=== PATIENT | female | born 1950 | race African-American/Black ===

== ENCOUNTER 2019-05-20 14:08 | Emergency (ER) | payer SELFPAY ==
[2019-05-20] MEDS ORDERED: Sodium Chloride 0.9% 10 ML Syringe FLUSH PRN ×2 (14:31→19:20)
--- NOTE | 2019-05-20 14:47 | EDM.PDOC ---
<Mauricio Valentin - Last Filed: 05/20/19 22:11> ED HPI GENERAL MEDICAL PROBLEM - General Chief Complaint: Cardiovascular Problem Stated Complaint: HIGH BP/BACK AND NECK PAIN/HEADACHE Time Seen by Provider: 05/20/19 14:28 - Related Data Allergies Allergy/AdvReac Type Severity Reaction Status Date / Time No Known Allergies Allergy Verified 05/20/19 14:24 Home Meds: Home Meds Atenolol [Tenormin] 25 mg PO BID 05/20/19 [History] Enalapril Maleate 20 mg PO DAILY 05/20/19 [History] Methimazole [Tapazole] 10 mg PO DAILY 05/20/19 [History] amLODIPine Besylate [Amlodipine Besylate] 10 mg PO DAILY #30 tablet 05/20/19 [Rx ] Course - Vital Signs Last Recorded V/S: Last Vital Signs Temp 97.9 F 05/20/19 14:24 Pulse 80 05/20/19 22:36 Resp 16 05/20/19 22:36 BP 167/87 H 05/20/19 22:36 Pulse Ox 98 05/20/19 22:36 - Orders/Labs/Meds Orders: Active Orders 24 hr Category Date Time Status EKG Documentation Completion [RC] STAT Care 05/20/19 14:31 Active EKG Documentation Completion [RC] STAT Care 05/20/19 19:45 Active Peripheral IV Care [RC] . DIRECTED Care 05/20/19 14:32 Active Peripheral IV Insertion Adult [OM.PC] Stat Oth 05/20/19 14:31 Ordered Labs: Laboratory Tests 05/20/19 05/20/19 05/20/19 Range/Units 15:00 15:00 15:00 WBC 4.31 (3.98-10.04) K/mm3 RBC 4.42 (3.98-5.22) M/mm3 Hgb 12.4 (11.2-15.7) gm/dl Hct 40.2 (34.1-44.9) % MCV 91.0 (79.4-94.8) fl MCH 28.1 (25.6-32.2) pg MCHC 30.8 L (32.2-35.5) g/dl RDW Std Deviation 43.4 (36.4-46.3) fL Plt Count 282 (182-369) K/mm3 MPV 11.3 (9.4-12.3) fl Neutrophils % (Manual) 45 (40-60) % Band Neutrophils % 0 (0-10) % Lymphocytes % (Manual) 49 H (20-40) % Atypical Lymphs % 0 % Monocytes % (Manual) 6 (2-10) % Eosinophils % (Manual) 0 L (0.7-5.8) % Basophils % (Manual) 0 L (0.1-1.2) Platelet Estimate Adequate Macrocytosis 1+ slight Ovalocytes 1+ slight RBC Morph Comment Not Reportable Sodium 143 (136-145) mEq/L Potassium 3.5 (3.5-5.1) mEq/L Chloride 104 (98-107) mEq/L Carbon Dioxide 31 (21-32) mEq/L Anion Gap 11.5 (5-15) BUN 12 (7-18) mg/dL Creatinine 1.0 (0.55-1.02) mg/dL Est Cr Clr Drug Dosing 49.70 mL/min Estimated GFR (MDRD) > 60 (>60) mL/min BUN/Creatinine Ratio 12.0 L (14-18) Glucose 115 (80-115) mg/dL Calcium 8.7 (8.5-10.1) mg/dL Total Bilirubin 0.2 (0.2-1.0) mg/dL AST 14 L (15-37) U/L ALT 26 (14-59) U/L Alkaline Phosphatase 104 (46-116) U/L Troponin I (0.00-0.056) ng/mL NT-Pro-B Natriuret Pep 109 (0-125) pg/mL Total Protein 8.0 (6.4-8.2) g/dl Albumin 3.7 (3.4-5.0) g/dl Globulin 4.3 gm/dL Albumin/Globulin Ratio 0.9 L (1-2) Free T4 (0.76-1.46) ng/dL TSH 3rd Generation (0.358-3.74) uIU/mL Urine Color (Yellow) Urine Appearance (Clear) Urine pH (5.0-8.0) Ur Specific [place] (1.005-1.030) Urine Protein (Negative) Urine Glucose (UA) (Negative) Urine Ketones (Negative) Urine Occult Blood (Negative) Urine Nitrite (Negative) Urine Bilirubin (Negative) Urine Urobilinogen (0.2-1.0) Ur Leukocyte Esterase (Negative) Urine RBC (0-5) /hpf Urine WBC (0-5) /hpf Ur Squamous Epith Cells (0-5) /hpf Urine Bacteria (FEW) /hpf Urine Mucus (FEW) /hpf 05/20/19 05/20/19 05/20/19 Range/Units 15:00 15:00 16:00 WBC (3.98-10.04) K/mm3 RBC (3.98-5.22) M/mm3 Hgb (11.2-15.7) gm/dl Hct (34.1-44.9) % MCV (79.4-94.8) fl MCH (25.6-32.2) pg MCHC (32.2-35.5) g/dl RDW Std Deviation (36.4-46.3) fL Plt Count (182-369) K/mm3 MPV (9.4-12.3) fl Neutrophils % (Manual) (40-60) % Band Neutrophils % (0-10) % Lymphocytes % (Manual) (20-40) % Atypical Lymphs % % Monocytes % (Manual) (2-10) % Eosinophils % (Manual) (0.7-5.8) % Basophils % (Manual) (0.1-1.2) Platelet Estimate Macrocytosis Ovalocytes RBC Morph Comment Sodium (136-145) mEq/L Potassium (3.5-5.1) mEq/L Chloride (98-107) mEq/L Carbon Dioxide (21-32) mEq/L Anion Gap (5-15) BUN (7-18) mg/dL Creatinine (0.55-1.02) mg/dL Est Cr Clr Drug Dosing mL/min Estimated GFR (MDRD) (>60) mL/min BUN/Creatinine Ratio (14-18) Glucose (80-115) mg/dL Calcium (8.5-10.1) mg/dL Total Bilirubin (0.2-1.0) mg/dL AST (15-37) U/L ALT (14-59) U/L Alkaline Phosphatase (46-116) U/L Troponin I 0.106 H* (0.00-0.056) ng/mL NT-Pro-B Natriuret Pep (0-125) pg/mL Total Protein (6.4-8.2) g/dl Albumin (3.4-5.0) g/dl Globulin gm/dL Albumin/Globulin Ratio (1-2) Free T4 0.59 L (0.76-1.46) ng/dL TSH 3rd Generation 19.417 H (0.358-3.74) uIU/mL Urine Color Light yellow (Yellow) Urine Appearance Clear (Clear) Urine pH 7.0 (5.0-8.0) Ur Specific [place] 1.020 (1.005-1.030) Urine Protein Negative (Negative) Urine Glucose (UA) Negative (Negative) Urine Ketones Negative (Negative) Urine Occult Blood Negative (Negative) Urine Nitrite Negative (Negative) Urine Bilirubin Negative (Negative) Urine Urobilinogen 0.2 (0.2-1.0) Ur Leukocyte Esterase Negative (Negative) Urine RBC 0-5 (0-5) /hpf Urine WBC 0-5 (0-5) /hpf Ur Squamous Epith Cells 0-5 (0-5) /hpf Urine Bacteria Occasional (FEW) /hpf Urine Mucus Not seen (FEW) /hpf 05/20/19 05/20/19 Range/Units 18:20 21:10 WBC (3.98-10.04) K/mm3 RBC (3.98-5.22) M/mm3 Hgb (11.2-15.7) gm/dl Hct (34.1-44.9) % MCV (79.4-94.8) fl MCH (25.6-32.2) pg MCHC (32.2-35.5) g/dl RDW Std Deviation (36.4-46.3) fL Plt Count (182-369) K/mm3 MPV (9.4-12.3) fl Neutrophils % (Manual) (40-60) % Band Neutrophils % (0-10) % Lymphocytes % (Manual) (20-40) % Atypical Lymphs % % Monocytes % (Manual) (2-10) % Eosinophils % (Manual) (0.7-5.8) % Basophils % (Manual) (0.1-1.2) Platelet Estimate Macrocytosis Ovalocytes RBC Morph Comment Sodium (136-145) mEq/L Potassium (3.5-5.1) mEq/L Chloride (98-107) mEq/L Carbon Dioxide (21-32) mEq/L Anion Gap (5-15) BUN (7-18) mg/dL Creatinine (0.55-1.02) mg/dL Est Cr Clr Drug Dosing mL/min Estimated GFR (MDRD) (>60) mL/min BUN/Creatinine Ratio (14-18) Glucose (80-115) mg/dL Calcium (8.5-10.1) mg/dL Total Bilirubin (0.2-1.0) mg/dL AST (15-37) U/L ALT (14-59) U/L Alkaline Phosphatase (46-116) U/L Troponin I 0.117 H* 0.113 H* (0.00-0.056) ng/mL NT-Pro-B Natriuret Pep (0-125) pg/mL Total Protein (6.4-8.2) g/dl Albumin (3.4-5.0) g/dl Globulin gm/dL Albumin/Globulin Ratio (1-2) Free T4 (0.76-1.46) ng/dL TSH 3rd Generation (0.358-3.74) uIU/mL Urine Color (Yellow) Urine Appearance (Clear) Urine pH (5.0-8.0) Ur Specific [place] (1.005-1.030) Urine Protein (Negative) Urine Glucose (UA) (Negative) Urine Ketones (Negative) Urine Occult Blood (Negative) Urine Nitrite (Negative) Urine Bilirubin (Negative) Urine Urobilinogen (0.2-1.0) Ur Leukocyte Esterase (Negative) Urine RBC (0-5) /hpf Urine WBC (0-5) /hpf Ur Squamous Epith Cells (0-5) /hpf Urine Bacteria (FEW) /hpf Urine Mucus (FEW) /hpf Meds: Medications Discontinued Medications Generic Name Dose Route Start Last Admin Trade Name Freq PRN Reason Stop Dose Admin Amlodipine Besylate 10 mg 05/20/19 18:41 05/20/19 19:02 Norvasc PO 05/20/19 18:42 10 mg ONETIME ONE Administration Enalaprilat 1.25 mg 05/20/19 16:33 05/20/19 16:50 Vasotec Iv IVPUSH 05/20/19 16:34 1.25 mg ONETIME ONE Administration Hydralazine HCl 10 mg 05/20/19 15:39 05/20/19 16:02 Apresoline IVPUSH 05/20/19 15:40 10 mg ONETIME ONE Administration Hydralazine HCl 10 mg 05/20/19 17:24 05/20/19 17:49 Apresoline IVPUSH 05/20/19 17:25 10 mg ONETIME ONE Administration Sodium Chloride 100 mls @ 60 mls/hr 05/20/19 19:30 05/20/19 20:05 Normal Saline IV 60 mls/hr ASDIRECTED VICKIE Administration Iopamidol 100 ml 05/20/19 19:20 05/20/19 20:05 Isovue-370 (76%) IVPUSH 05/20/19 19:21 100 ml ONETIME ONE Administration Ketorolac Tromethamine 30 mg 05/20/19 17:23 05/20/19 17:47 Toradol IVPUSH 05/20/19 17:24 30 mg ONETIME ONE Administration Sodium Chloride 10 ml 05/20/19 14:31 05/20/19 15:05 Saline Flush FLUSH 10 ml ASDIRECTED PRN Administration Keep Vein Open Sodium Chloride 10 ml 05/20/19 19:20 05/20/19 20:06 Saline Flush FLUSH 10 ml ONETIME PRN Administration Keep Vein Open - Re-Assessments/Exams Free Text/Narrative Re-Assessment/Exam: 05/20/19 22:12 Taking over for Jeanine. The CT of her chest shows no findings of pulmonary embolism. No aortic aneurysm or dissection. Nothing acute is appreciated on CT study of the chest. Other findings are non acute. Her repeat troponin is 0.113 and the one before that was 0.117. There has been hardly no change. I will discharge her home with the plan that Luz has outlined for her. Departure - Departure Time of Disposition: 22:15 Disposition: Home, Self-Care 01 Condition: Fair Clinical Impression: Elevated systolic blood pressure reading with diagnosis of hypertension, Elevated troponin, Hypothyroidism due to medication Low back pain Qualifiers: Chronicity: acute Back pain laterality: bilateral Sciatica presence: without sciatica Qualified Code(s): M54.5 - Low back pain Prescriptions: amLODIPine Besylate [Amlodipine Besylate] 10 mg PO DAILY #30 tablet Instructions: Thyroid-Stimulating Hormone Test, DASH Eating Plan Referrals: PCP,Unknown [Ordering Only Provider] - 06/24/19 (re-check TSH by endocrinology, Bar Guerra NP in [place]) Terra Mccarthy MD [Physician] - 2 Weeks (set up primary care) Mitul Nicholas MD [Physician] - 2 Weeks (set up primary care) Forms: ED Department Discharge Additional Instructions: You were evaluated in the ER today regarding your elevated blood pressure readings, and generalized feelings of being unwell. Your blood pressure was still quite elevated in the ER, and you were treated for this, you were given a combination of IV medications which is helped lower your blood pressure quite a bit, this did seem to help relieve most your symptoms. You have been given a prescription for a new blood pressure medication, amlodipine 10 mg daily, please start taking tomorrow for further blood pressure management, unless told otherwise. You should follow-up with cardiology within 1 week for a further outpatient cardiac work-up. Laboratory evaluation demonstrated an abnormality in your thyroid hormone level , which means you are taking too much methimazole, please decrease your dose by half, so take only 5 mg daily. You should have your TSH level rechecked in around 6 weeks time, recommend you follow-up with your primary care provider for further lab testing. Your back pain is most likely due to arthritic changes, the x-ray did not show any sort of acute damage that should be causing increased back pain. You may take ibuprofen 6 every 6 hours as needed for further back pain. Please return to the ER however if your symptoms change or worsen. Sepsis Event Note - Focused Exam Vital Signs: Vital Signs Pulse Resp BP Pulse Ox 05/20/19 22:36 80 16 167/87 H 98 Date Exam was Performed: 05/20/19 Time Exam was Performed: 22:11 - My Orders Last 24 Hours: My Active Orders 05/20/19 14:31 EKG Documentation Completion [RC] STAT Peripheral IV Insertion Adult [OM.PC] Stat 05/20/19 14:32 Peripheral IV Care [RC] . DIRECTED 05/20/19 19:45 EKG Documentation Completion [RC] STAT - Assessment/Plan Last 24 Hours: My Active Orders 05/20/19 14:31 EKG Documentation Completion [RC] STAT Peripheral IV Insertion Adult [OM.PC] Stat 05/20/19 14:32 Peripheral IV Care [RC] . DIRECTED 05/20/19 19:45 EKG Documentation Completion [RC] STAT <Luz Samayoa - Last Filed: 05/21/19 08:45> ED HPI GENERAL MEDICAL PROBLEM - General Source of Information: Reports: Patient, RN Notes Reviewed History Limitations: Reports: No Limitations - History of Present Illness INITIAL COMMENTS - FREE TEXT/NARRATIVE: Patient is a 69-year-old female who presents to the ED for the evaluation of elevated blood pressure, back and neck pain, and headache. The patient states that she has been on blood pressure medications for around 1 year now. She takes atenolol 25 mg twice daily, enalapril 20 mg daily, and methimazole 10 mg daily. She sees a healthcare provider in [place] but lives in [place]. The patient notes that she began not feeling well this morning, she went to the walk-in clinic and was found to have an elevated blood pressure reading. She notes that it was 210/87 at their clinic. At time of triage here it is 215/97, and a recheck 5 minutes later is 202/88. Patient notes that she is getting headaches, that seem to worsen at night, she is also complaining of neck and back pain, with some associated leg numbness and tingling, she states that she feels some chest discomfort as well as palpitations. Patient's denies any history of stroke, or blood clots. She is not complaining of any shortness of breath, fevers or chills, nausea or vomiting or diarrhea. Headache Pain Score (Numeric/FACES): 4 Past Medical History Cardiovascular History: Reports: Hypertension Other Cardiovascular History: Heart palpitation [employer] MANAGER History: Reports: Endocrine/Metabolic History: Reports: Hyperthyroidism - Past Surgical History Female Surgical History: Reports: Hysterectomy Social & Family History - Tobacco Use Smoking Status *Q: Never Smoker - Caffeine Use Caffeine Use: Reports: Tea - Recreational Drug Use Recreational Drug Use: No ED ROS GENERAL - Review of Systems Review Of Systems: See Below Constitutional: Denies: Fever, Chills, Decreased Appetite HEENT: Denies: Vertigo, Vision Change Respiratory: Denies: Shortness of Breath Cardiovascular: Reports: Chest Pain, Blood Pressure Problem (elevated BP), Palpitations. Denies: Edema, Lightheadedness GI/Abdominal: Denies: Abdominal Pain, Diarrhea, Nausea, Vomiting Neurological: Reports: Headache, Numbness (bilateral lower extremities), Tingling (bilateral lower extremities) ED EXAM, GENERAL - Physical Exam Exam: See Below Exam Limited By: No Limitations General Appearance: Alert, WD/WN, No Apparent Distress Eye Exam: Bilateral Eye: EOMI, Normal Inspection, PERRL Ears: Normal External Exam, Normal Canal, Hearing Grossly Normal, Normal TMs Nose: Normal Inspection Throat/Mouth: Normal Inspection, Normal Lips, Normal Teeth, Normal Gums, Normal Oropharynx, Normal Voice, No Airway Compromise Head: Atraumatic, Normocephalic Neck: Normal Inspection, Supple, Non-Tender, Full Range of Motion Respiratory/Chest: No Respiratory Distress, Lungs Clear, Normal Breath Sounds, No Accessory Muscle Use, Chest Non-Tender Cardiovascular: Normal Peripheral Pulses, Regular Rate, Rhythm, No Edema, No Murmur Peripheral Pulses: 3+: Radial (L), Radial (R) GI/Abdominal: Normal Bowel Sounds, Soft, Non-Tender, No Distention, No Mass Extremities: Normal Inspection, Normal Capillary Refill Neurological: Alert, Oriented, Normal Cognition, No Motor/Sensory Deficits Psychiatric: Normal Affect, Normal Mood Skin Exam: Warm, Dry, Intact, Normal Color, No Rash EKG INTERPRETATION EKG Date: 05/20/19 Time: 15:00 Rhythm: NSR (sinus chichi) Rate (Beats/Min): 54 [place]: LAD-Left [place] Deviation (-25) P-Wave: Present QRS: Normal ST-T: Normal QT: Normal Comparison: NA - No Prior EKG EKG Interpretation Comments: Q waves in V1 and V2, LVH pattern, with left atrial hypertrophy. This was reviewed by myself and Dr. Mckeon. No acute ischemic change noted. Course - Orders/Labs/Meds Labs: Laboratory Tests 05/20/19 05/20/19 05/20/19 Range/Units 15:00 15:00 15:00 WBC 4.31 (3.98-10.04) K/mm3 RBC 4.42 (3.98-5.22) M/mm3 Hgb 12.4 (11.2-15.7) gm/dl Hct 40.2 (34.1-44.9) % MCV 91.0 (79.4-94.8) fl MCH 28.1 (25.6-32.2) pg MCHC 30.8 L (32.2-35.5) g/dl RDW Std Deviation 43.4 (36.4-46.3) fL Plt Count 282 (182-369) K/mm3 MPV 11.3 (9.4-12.3) fl Neutrophils % (Manual) 45 (40-60) % Band Neutrophils % 0 (0-10) % Lymphocytes % (Manual) 49 H (20-40) % Atypical Lymphs % 0 % Monocytes % (Manual) 6 (2-10) % Eosinophils % (Manual) 0 L (0.7-5.8) % Basophils % (Manual) 0 L (0.1-1.2) Platelet Estimate Adequate Macrocytosis 1+ slight Ovalocytes 1+ slight RBC Morph Comment Not Reportable Sodium 143 (136-145) mEq/L Potassium 3.5 (3.5-5.1) mEq/L Chloride 104 (98-107) mEq/L Carbon Dioxide 31 (21-32) mEq/L Anion Gap 11.5 (5-15) BUN 12 (7-18) mg/dL Creatinine 1.0 (0.55-1.02) mg/dL Est Cr Clr Drug Dosing 49.70 mL/min Estimated GFR (MDRD) > 60 (>60) mL/min BUN/Creatinine Ratio 12.0 L (14-18) Glucose 115 (80-115) mg/dL Calcium 8.7 (8.5-10.1) mg/dL Total Bilirubin 0.2 (0.2-1.0) mg/dL AST 14 L (15-37) U/L ALT 26 (14-59) U/L Alkaline Phosphatase 104 (46-116) U/L Troponin I (0.00-0.056) ng/mL NT-Pro-B Natriuret Pep 109 (0-125) pg/mL Total Protein 8.0 (6.4-8.2) g/dl Albumin 3.7 (3.4-5.0) g/dl Globulin 4.3 gm/dL Albumin/Globulin Ratio 0.9 L (1-2) Free T4 (0.76-1.46) ng/dL TSH 3rd Generation (0.358-3.74) uIU/mL Urine Color (Yellow) Urine Appearance (Clear) Urine pH (5.0-8.0) Ur Specific [place] (1.005-1.030) Urine Protein (Negative) Urine Glucose (UA) (Negative) Urine Ketones (Negative) Urine Occult Blood (Negative) Urine Nitrite (Negative) Urine Bilirubin (Negative) Urine Urobilinogen (0.2-1.0) Ur Leukocyte Esterase (Negative) Urine RBC (0-5) /hpf Urine WBC (0-5) /hpf Ur Squamous Epith Cells (0-5) /hpf Urine Bacteria (FEW) /hpf Urine Mucus (FEW) /hpf 05/20/19 05/20/19 05/20/19 Range/Units 15:00 15:00 16:00 WBC (3.98-10.04) K/mm3 RBC (3.98-5.22) M/mm3 Hgb (11.2-15.7) gm/dl Hct (34.1-44.9) % MCV (79.4-94.8) fl MCH (25.6-32.2) pg MCHC (32.2-35.5) g/dl RDW Std Deviation (36.4-46.3) fL Plt Count (182-369) K/mm3 MPV (9.4-12.3) fl Neutrophils % (Manual) (40-60) % Band Neutrophils % (0-10) % Lymphocytes % (Manual) (20-40) % Atypical Lymphs % % Monocytes % (Manual) (2-10) % Eosinophils % (Manual) (0.7-5.8) % Basophils % (Manual) (0.1-1.2) Platelet Estimate Macrocytosis Ovalocytes RBC Morph Comment Sodium (136-145) mEq/L Potassium (3.5-5.1) mEq/L Chloride (98-107) mEq/L Carbon Dioxide (21-32) mEq/L Anion Gap (5-15) BUN (7-18) mg/dL Creatinine (0.55-1.02) mg/dL Est Cr Clr Drug Dosing mL/min Estimated GFR (MDRD) (>60) mL/min BUN/Creatinine Ratio (14-18) Glucose (80-115) mg/dL Calcium (8.5-10.1) mg/dL Total Bilirubin (0.2-1.0) mg/dL AST (15-37) U/L ALT (14-59) U/L Alkaline Phosphatase (46-116) U/L Troponin I 0.106 H* (0.00-0.056) ng/mL NT-Pro-B Natriuret Pep (0-125) pg/mL Total Protein (6.4-8.2) g/dl Albumin (3.4-5.0) g/dl Globulin gm/dL Albumin/Globulin Ratio (1-2) Free T4 0.59 L (0.76-1.46) ng/dL TSH 3rd Generation 19.417 H (0.358-3.74) uIU/mL Urine Color Light yellow (Yellow) Urine Appearance Clear (Clear) Urine pH 7.0 (5.0-8.0) Ur Specific [place] 1.020 (1.005-1.030) Urine Protein Negative (Negative) Urine Glucose (UA) Negative (Negative) Urine Ketones Negative (Negative) Urine Occult Blood Negative (Negative) Urine Nitrite Negative (Negative) Urine Bilirubin Negative (Negative) Urine Urobilinogen 0.2 (0.2-1.0) Ur Leukocyte Esterase Negative (Negative) Urine RBC 0-5 (0-5) /hpf Urine WBC 0-5 (0-5) /hpf Ur Squamous Epith Cells 0-5 (0-5) /hpf Urine Bacteria Occasional (FEW) /hpf Urine Mucus Not seen (FEW) /hpf 05/20/19 05/20/19 Range/Units 18:20 21:10 WBC (3.98-10.04) K/mm3 RBC (3.98-5.22) M/mm3 Hgb (11.2-15.7) gm/dl Hct (34.1-44.9) % MCV (79.4-94.8) fl MCH (25.6-32.2) pg MCHC (32.2-35.5) g/dl RDW Std Deviation (36.4-46.3) fL Plt Count (182-369) K/mm3 MPV (9.4-12.3) fl Neutrophils % (Manual) (40-60) % Band Neutrophils % (0-10) % Lymphocytes % (Manual) (20-40) % Atypical Lymphs % % Monocytes % (Manual) (2-10) % Eosinophils % (Manual) (0.7-5.8) % Basophils % (Manual) (0.1-1.2) Platelet Estimate Macrocytosis Ovalocytes RBC Morph Comment Sodium (136-145) mEq/L Potassium (3.5-5.1) mEq/L Chloride (98-107) mEq/L Carbon Dioxide (21-32) mEq/L Anion Gap (5-15) BUN (7-18) mg/dL Creatinine (0.55-1.02) mg/dL Est Cr Clr Drug Dosing mL/min Estimated GFR (MDRD) (>60) mL/min BUN/Creatinine Ratio (14-18) Glucose (80-115) mg/dL Calcium (8.5-10.1) mg/dL Total Bilirubin (0.2-1.0) mg/dL AST (15-37) U/L ALT (14-59) U/L Alkaline Phosphatase (46-116) U/L Troponin I 0.117 H* 0.113 H* (0.00-0.056) ng/mL NT-Pro-B Natriuret Pep (0-125) pg/mL Total Protein (6.4-8.2) g/dl Albumin (3.4-5.0) g/dl Globulin gm/dL Albumin/Globulin Ratio (1-2) Free T4 (0.76-1.46) ng/dL TSH 3rd Generation (0.358-3.74) uIU/mL Urine Color (Yellow) Urine Appearance (Clear) Urine pH (5.0-8.0) Ur Specific [place] (1.005-1.030) Urine Protein (Negative) Urine Glucose (UA) (Negative) Urine Ketones (Negative) Urine Occult Blood (Negative) Urine Nitrite (Negative) Urine Bilirubin (Negative) Urine Urobilinogen (0.2-1.0) Ur Leukocyte Esterase (Negative) Urine RBC (0-5) /hpf Urine WBC (0-5) /hpf Ur Squamous Epith Cells (0-5) /hpf Urine Bacteria (FEW) /hpf Urine Mucus (FEW) /hpf - Re-Assessments/Exams Free Text/Narrative Re-Assessment/Exam: 05/20/19 14:48 Patient presents to the ED for elevated blood pressure readings, and a generalized feeling of not feeling well. Patient will be monitored in the ER to determine if we need to treat her blood pressure, but she is on 2 other medications for this. Initial labs be done to include a CBC, CMP, BNP, UA, TSH and a free T4, IV will be placed, EKG will be taken and a chest x-ray has been ordered. 05/20/19 15:39 Patient's blood pressure still quite elevated at 204/78. Patient will be given 10 mg of IV push hydralazine for management, most labs are still pending. 05/20/19 16:32 Patient was given hydralazine, recheck of her blood pressure states that is 185/ 80. Patient's troponin was elevated at 0.109. A 3-hour troponin will be obtained for further evaluation, I believe this might be due to heart strain in nature. The patient's chest x-ray does show cardiomegaly but no other acute findings. UA was within normal limits. I did go over the labs with Dr. Mckeon. He suggested the 3 hour troponin as well, and to try 1.25mg enalapril IV to see if this helps her blood pressure further. 05/20/19 17:28 TSH is come back and is markedly elevated at 19.417, her free T4 is low at 0.59. Patient was reassessed at bedside, and states she is feeling a little bit better, however is still having a low backache. I did order a lumbar x-ray for further evaluation, and 30mg IV Toradol for management. She will get a repeat dose of hydralazine 10 mg, as her blood pressure still 180/98. Labs were again reviewed with Dr. Mckeon, and he notes that the elevated TSH could be causing the high troponin as well. He states that if the repeat troponin is not higher than it was initially, she could be safely discharged home with 10mg Norvasc, a decrease in her methimazole to 5mg daily, and a repeat TSH in around 6 weeks. 05/20/19 18:43 Patient's lumbar x-ray shows diffuse degenerative change, multiple osteophytes noted, and some disc space narrowing. However no acute processes were noted by myself or Dr. Mckeon. Official radiology read reflects as such. Second troponin is still processing at this time. Patient's blood pressure as she got back into her room after her x-ray, is now 134/66. She will be given amlodipine 10 mg by mouth now, and a prescription for this to start taking at home tomorrow. Pending a troponin that is not increased from the initial 1 she will be discharged home with general recommendations. 05/20/19 19:04 Patient's repeat troponin is elevated at 0.117, which is elevated from the initial 0.106. At this time I have consulted cardiology at [facility], suggests a CT angio chest to r/o a dissection, and another repeat troponin at 6hr interval, so 3 hours from now. If the troponin the same or down and CT is negative, she may be discharged home with outpatient cardiac workup. If it is elevated, she would need further workup. 05/20/19 19:44 As it is nearing end of my shift, I discussed the case with Dr. Valentin, and he will watch after the patient. 05/21/19 08:44 It was reported to me by Dr. Valentin, that the patient states she had some generalized swelling after being started on amlodipine before. He states that he placed her on hydralazine outpatient for further management as she had pretty good results with this in the ER. Departure - Departure Condition: Fair Sepsis Event Note - Evaluation Sepsis Screening Result: No Definite Risk - Focused Exam Date Exam was Performed: 05/21/19 Time Exam was Performed: 08:44
[2019-05-20] MEDS ORDERED: hydrALAZINE 20 MG/ML SDV IVPUSH ONE ×2 (15:39→17:24)
--- NOTE | 2019-05-20 15:41 | CR ---
Chest: Two views of the chest are obtained. Comparison: No prior chest imaging. Heart is enlarged. Tortuous thoracic aorta is seen. Minimal density within the left base is seen most likely due to slight atelectasis. Lungs otherwise are clear. Bony structures show diffuse disc space narrowing throughout the spine with mild endplate osteophytes. Impression: 1. Cardiomegaly. Other findings as noted above. 2. Nothing acute is appreciated. Diagnostic code #2 This report was dictated in [place] Standard Time
[2019-05-20] MEDS ORDERED: Enalaprilat 1.25 MG/ML SDV IVPUSH ONE (16:33)
[2019-05-20] MEDS ORDERED: Ketorolac 30 MG/ML SDV IVPUSH ONE (17:23)
--- NOTE | 2019-05-20 18:39 | CR ---
Lumbar spine: AP, lateral and cone down lateral view centered to the lumbosacral junction were obtained. Mild diffuse disc space narrowing is seen with lower thoracic and lumbar spine. Scattered endplate osteophytes are noted both anterior and laterally. Pedicles are intact. Visualized transverse and spinous processes are intact. No acute fracture or subluxation is seen. Impression: 1. Mild diffuse degenerative change as noted above. 2. Nothing acute is seen. Diagnostic code #2 This report was dictated in [place] Standard Time
[2019-05-20] MEDS ORDERED: amLODIPine 10 MG Tab PO ONE (18:41)
[2019-05-20] MEDS ORDERED: Iopamidol 755 Mg/ML 100 ML Bottle IVPUSH ONE (19:20)
[2019-05-20] MEDS ORDERED: Sodium Chloride 0.9% 100 ML IV SCH (19:30)
--- NOTE | 2019-05-20 20:49 | CT ---
CT chest Technique: Multiple axial sections through the chest were obtained. Intravenous contrast was utilized. Comparison: Previous chest x-ray performed earlier on the same date (2:39 PM). Findings: Pulmonary arteries show no filling defects to indicate pulmonary embolism. Heart is enlarged. Aorta shows no aneurysm. No dissection is seen within the thoracic aorta. No mediastinal adenopathy is seen. No pericardial thickening is appreciated. Several cysts are noted within the left kidney. Largest cyst measures 1.7 cm. Small hiatal hernia is present. Lungs show no acute parenchymal change. No pleural effusions are seen. Degenerative change is scattered throughout the spine. No acute parenchymal process is seen. Impression: 1. No findings of pulmonary embolism. No aortic aneurysm or dissection. 2. Nothing acute is appreciated on CT study of the chest. 3. Other findings as noted above which are nonacute. Diagnostic code #2 Study was dictated in [place] Standard Time
== END 2019-05-20 22:30 | disposition home or self-care (01) ==
LOC: JD.ED 14:08
DX: I10 Essential (primary) hypertension (principal); E03.2 Hypothyroidism due to medicaments and other exogenous substances; M54.5 Low back pain; R79.89 Other specified abnormal findings of blood chemistry
CPT/HCPCS: 36415; 71046; 71275; 72100; 80053; 81001; 83880; 84439; 84443; 84484; 85007; 85027; 93005; 96374; 96375; 96376; 99284; A9270; J0360; J1885; J7050; Q9967; 93010

== ENCOUNTER 2019-05-31 08:07 | Emergency (ER) | payer OTHER ==
[2019-05-31] MEDS ORDERED: Sodium Chloride 0.9% 10 ML Syringe FLUSH PRN (09:29)
--- NOTE | 2019-05-31 12:30 | EDM.PDOC ---
ED HPI GENERAL MEDICAL PROBLEM - General Chief Complaint: General Stated Complaint: STOPPED MEDS DIRECTED/INCREASED SYMPTOMS Time Seen by Provider: 05/31/19 09:20 Source of Information: Reports: Patient, Family History Limitations: Reports: No Limitations - History of Present Illness INITIAL COMMENTS - FREE TEXT/NARRATIVE: The patient presents with diarrhea, sweating, palpitations and headache. These are all symptoms she had when she was diagnosed with hyperthyroidism. She was on methimazole for her hyperthyroidism but she was here over a week ago with hypertension and her TSH was elevated. She was told to stop the methimazole. Now she is having these symptoms again and her blood pressure is elevated. She also was having some chest pain at times and shortness of breath. She had elevated troponins last time and cardiology was consulted in [place] and they requested a 6 hour troponin. It was still elevated but going down. She was sent home and she was to follow up with her provider. These symptoms have been going on for a few days. Onset: Gradual Duration: Day(s): Location: Reports: Head Quality: Reports: Ache Severity: Moderate Improves with: Reports: None Worsens with: Reports: None Associated Symptoms: Reports: Chest Pain, Headaches. 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: Endocrine/Metabolic History: Reports: Hyperthyroidism - Past Surgical History Female Surgical History: Reports: Hysterectomy Social & Family History - Family History Family Medical History: Noncontributory - Tobacco Use Smoking Status *Q: Never Smoker Second Hand Smoke Exposure: No - Caffeine Use Caffeine Use: Reports: Tea ED ROS GENERAL - Review of Systems Review Of Systems: See Below Constitutional: Reports: No Symptoms HEENT: Reports: No Symptoms Respiratory: Reports: Shortness of Breath Cardiovascular: Reports: Chest Pain, Palpitations Endocrine: Reports: No Symptoms GI/Abdominal: Reports: Diarrhea. Denies: Abdominal Pain, Nausea, Vomiting : Reports: No Symptoms Musculoskeletal: Reports: No Symptoms Neurological: Reports: No Symptoms ED EXAM, GENERAL - Physical Exam Exam: See Below Exam Limited By: No Limitations General Appearance: Alert, No Apparent Distress Ears: Normal External Exam Nose: Normal Inspection Head: Atraumatic, Normocephalic Neck: Normal Inspection Respiratory/Chest: No Respiratory Distress, Lungs Clear, Normal Breath Sounds Cardiovascular: Regular Rate, Rhythm, No Edema, No Murmur GI/Abdominal: Soft, Non-Tender, No Organomegaly, No Mass Back Exam: Normal Inspection Extremities: Normal Inspection Neurological: Alert, Oriented, No Motor/Sensory Deficits EKG INTERPRETATION EKG Date: 05/31/19 Time: 09:35 Rhythm: Other (sinus bradycardia) Rate (Beats/Min): 56 [place]: Normal P-Wave: Present QRS: Normal ST-T: Other (Flattened T waves in the inferior leads and flipped T waves in the lateral leads) QT: Normal Course - Vital Signs Last Recorded V/S: Last Vital Signs Temp 98.3 F 05/31/19 09:16 Pulse 53 L 05/31/19 09:16 Resp 16 05/31/19 09:16 BP 187/97 H 05/31/19 09:16 Pulse Ox 100 05/31/19 09:16 - Orders/Labs/Meds Orders: Active Orders 24 hr Category Date Time Status Cardiac Monitoring [RC] . DIRECTED Care 05/31/19 09:29 Active EKG Documentation Completion [RC] STAT Care 05/31/19 09:30 Active Peripheral IV Care [RC] . DIRECTED Care 05/31/19 09:31 Active THYROXINE (T4) [REF] Stat Lab 05/31/19 11:31 Received Sodium Chloride 0.9% [Saline Flush] Med 05/31/19 09:29 Active 10 ml FLUSH ASDIRECTED PRN Peripheral IV Insertion Adult [OM.PC] Stat Oth 05/31/19 09:29 Ordered Medication Orders Sodium Chloride (Saline Flush) 10 ml FLUSH ASDIRECTED PRN PRN Reason: Keep Vein Open Last Admin: 05/31/19 10:02 Dose: 10 ml Labs: Laboratory Tests 05/31/19 05/31/19 Range/Units 09:58 09:58 WBC 5.67 (3.98-10.04) K/mm3 RBC 4.34 (3.98-5.22) M/mm3 Hgb 12.3 (11.2-15.7) gm/dl Hct 39.3 (34.1-44.9) % MCV 90.6 (79.4-94.8) fl MCH 28.3 (25.6-32.2) pg MCHC 31.3 L (32.2-35.5) g/dl RDW Std Deviation 42.9 (36.4-46.3) fL Plt Count 266 (182-369) K/mm3 MPV 11.7 (9.4-12.3) fl Neut % (Auto) 56.5 (34.0-71.1) % Lymph % (Auto) 32.1 (19.3-51.7) % [place] % (Auto) 10.8 (4.7-12.5) % Eos % (Auto) 0.4 L (0.7-5.8) Baso % (Auto) 0.0 L (0.1-1.2) % Neut # (Auto) 3.21 (1.56-6.13) K/mm3 Lymph # (Auto) 1.82 (1.18-3.74) K/mm3 [place] # (Auto) 0.61 H (0.24-0.36) K/mm3 Eos # (Auto) 0.02 L (0.04-0.36) K/mm3 Baso # (Auto) 0.00 L (0.01-0.08) K/mm3 Sodium 140 (136-145) mEq/L Potassium 4.7 (3.5-5.1) mEq/L Chloride 103 (98-107) mEq/L Carbon Dioxide 29 (21-32) mEq/L Anion Gap 12.7 (5-15) BUN 15 (7-18) mg/dL Creatinine 0.7 (0.55-1.02) mg/dL Est Cr Clr Drug Dosing 76.51 mL/min Estimated GFR (MDRD) > 60 (>60) mL/min BUN/Creatinine Ratio 21.4 H (14-18) Glucose 99 (80-115) mg/dL Calcium 8.7 (8.5-10.1) mg/dL Total Bilirubin 0.5 (0.2-1.0) mg/dL AST 31 (15-37) U/L ALT 35 (14-59) U/L Alkaline Phosphatase 104 (46-116) U/L Troponin I 0.083 H* (0.00-0.056) ng/mL Total Protein 8.0 (6.4-8.2) g/dl Albumin 3.4 (3.4-5.0) g/dl Globulin 4.6 gm/dL Albumin/Globulin Ratio 0.7 L (1-2) TSH 3rd Generation 0.110 L (0.358-3.74) uIU/mL Meds: Medications Generic Name Dose Route Start Last Admin Trade Name Freq PRN Reason Stop Dose Admin Sodium Chloride 10 ml 05/31/19 09:29 05/31/19 10:02 Saline Flush FLUSH 10 ml ASDIRECTED PRN Administration Keep Vein Open - Re-Assessments/Exams Free Text/Narrative Re-Assessment/Exam: 05/31/19 12:32 I ordered an IV saline lock, EKG, and labs. Her EKG shows a sinus bradycardia with no acute changes. Her CBC and CMP look good. Her troponin is elevated at 0.083. Her TSH is low this time at 0.11. I am waiting for her T4. 05/31/19 12:52 I called [facility] in [place] and talked with Dr Hoang the shiatsu therapist inspector repairer [place] and he was not concerned about the troponins. Her problem is the thyroid and it is causing hypertension. Both of those can affect the troponin. I will get her back on the methinazole at 5mg and have her follow up with her provider within a week. Departure - Departure Time of Disposition: 12:55 Disposition: Home, Self-Care 01 Condition: Good Clinical Impression: Elevated troponin, Hyperthyroidism - Discharge Information *PRESCRIPTION DRUG MONITORING PROGRAM REVIEWED*: Not Applicable *COPY OF PRESCRIPTION DRUG MONITORING REPORT IN PATIENT ANSHUL: Not Applicable Referrals: Audra Guerra NP [Primary Care Provider] - 1 Week Forms: ED Department Discharge Additional Instructions: Take your blood pressure medication as prescribed. Take your methimazole 5mg daily. Follow up with your provider within a week. Please return if you are worse. Sepsis Event Note - Evaluation Sepsis Screening Result: No Definite Risk - Focused Exam Vital Signs: Vital Signs Temp Pulse Resp BP Pulse Ox 05/31/19 09:16 98.3 F 53 L 16 187/97 H 100 Date Exam was Performed: 05/31/19 Time Exam was Performed: 12:52 - My Orders Last 24 Hours: My Active Orders 05/31/19 09:29 Cardiac Monitoring [RC] . DIRECTED Sodium Chloride 0.9% [Saline Flush] 10 ml FLUSH ASDIRECTED PRN Peripheral IV Insertion Adult [OM.PC] Stat 05/31/19 09:30 EKG Documentation Completion [RC] STAT 05/31/19 09:31 Peripheral IV Care [RC] . DIRECTED 05/31/19 11:31 THYROXINE (T4) [REF] Stat - Assessment/Plan Last 24 Hours: My Active Orders 05/31/19 09:29 Cardiac Monitoring [RC] . DIRECTED Sodium Chloride 0.9% [Saline Flush] 10 ml FLUSH ASDIRECTED PRN Peripheral IV Insertion Adult [OM.PC] Stat 05/31/19 09:30 EKG Documentation Completion [RC] STAT 05/31/19 09:31 Peripheral IV Care [RC] . DIRECTED 05/31/19 11:31 THYROXINE (T4) [REF] Stat
== END 2019-05-31 13:05 | disposition home or self-care (01) ==
LOC: JD.ED 08:07
DX: E05.90 Thyrotoxicosis, unspecified without thyrotoxic crisis or storm (principal); R79.89 Other specified abnormal findings of blood chemistry; I10 Essential (primary) hypertension; Z79.899 Other long term (current) drug therapy
CPT/HCPCS: 36415; 80053; 84436; 84443; 84484; 85025; 93005; 93010; 99283; 99285-25